=== PATIENT | male | born 1950 | race Two or more races ===

== ENCOUNTER 2018-03-06 15:07 | Emergency (ER) | payer MEDICARE, BC ==
[~2018-03-06] VITALS: Ht 175.3 cm; Wt 81.6 kg
[~2018-03-06 15:07] MED LIST: BENADRYL25 MG ORAL; PREDNISONE20 MG ORAL; RANITIDINE HCL150 MG ORAL
[2018-03-06 15:35] VITALS: BP 125/80
[2018-03-06] MEDS ORDERED: IBUPROFEN600 MG ORAL (15:38)
[2018-03-06] MEDS ORDERED: AUGMENTIN 875-1 EAC1 ORAL (15:38)
[2018-03-06 15:40] VITALS: BP 125/80
--- NOTE | 2018-03-06 19:39 | Emergency Room Report ---
History of Present Illness General Chief Complaint: Sore Throat Source: Patient Present Illness HPI Patient presents with complaints of sore throat he reports that He was at dinner with a friend yesterday who is also sick With a sore throat Soon after that he started having scratchy feeling in his throat Denies any chest pain or shortness of breath denies any back or flank pain denies any fevers Denies any change with his voice denies any posterior neck pain Allergies: Coded Allergies: No Known Allergies (Unverified , 03/06/18) Patient History Past Medical History: see triage record Pertinent Family History: none Reviewed Nursing Documentation: PMH: Agreed; PSxH: Agreed Nursing Documentation-PMH Past Medical History: No History, Except For Hx Cardiac Problems: Yes - high triglycerides Review of Systems All Other Systems: negative except mentioned in HPI Physical Exam Vital Signs Date Time Temp Pulse Resp B/P (MAP) Pulse Ox O2 Delivery O2 Flow Rate FiO2 03/06/18 15:25 98.0 80 18 125/80 98 Room Air 98.1 Sp02 EP Interpretation: reviewed, normal General Appearance: well appearing, no apparent distress Head: normocephalic, atraumatic Eyes: bilateral eye PERRL, bilateral eye EOMI ENT: no angioedema, normal voice, pharyngeal erythema Neck: full range of motion, supple Respiratory: lungs clear Cardiovascular #1: regular rate, rhythm, no edema Gastrointestinal: non tender, soft Genitourinary: no CVA tenderness Musculoskeletal: normal inspection Neurologic: alert, oriented x3 Psychiatric: normal inspection Skin: normal color, no rash Lymphatic: no adenopathy Medical Decision Making Diagnostic Impression: Primary Impression: pharyngitis ER Course Patient shows signs of clinical and examination consistent with pharyngitis placed on oral antibiotics and will have initial conservative outpatient trial Last Vital Signs Date Time Temp Pulse Resp B/P (MAP) Pulse Ox O2 Delivery O2 Flow Rate FiO2 03/06/18 15:40 98.1 18 125/80 98 Room Air 98.1 03/06/18 15:25 80 Status: unchanged Disposition: HOME, SELF-CARE Condition: Stable Scripts Ibuprofen* (MOTRIN*) 600 Mg Tablet 600 MG ORAL Q8H PRN for For Pain, #20 TAB 0 Refills Prov: Austin Pulido DO 03/06/18 Amoxicillin/Potassium Clav 875-125* (AUGMENTIN 875-125 TABLET*) 1 Each Tablet 1 TAB ORAL TWICE A DAY, #14 TAB Prov: Austin Pulido DO 03/06/18 Referrals: NON PHYSICIAN (PCP) Patient Instructions: Pharyngitis, [id number] Additional Instructions: Patient is provided with the discharge instructions notified to follow up with primary doctor in the next 2-3 days otherwise return to the er with any worsening symptoms. Please note that this report is being documented using [employer] technology. This can lead to erroneous entry secondary to incorrect interpretation by the dictating instrument. Austin Pulido DO Mar 06, 2018 19:39
== END 2018-03-06 15:40 | disposition home or self-care (01) ==
LOC: EMR 15:40
DX: J02.9 Acute pharyngitis, unspecified (principal)
CPT/HCPCS: 99283

== ENCOUNTER 2018-08-13 12:20 | Emergency (ER) | payer MEDICARE, BC ==
[~2018-08-13] VITALS: Ht 167.6 cm; Wt 81.6 kg
[~2018-08-13 12:20] MED LIST changes: +AUGMENTIN 875-1 EAC1 ORAL; +IBUPROFEN600 MG ORAL
[2018-08-13 12:26] VITALS: BP 139/85
--- NOTE | 2018-08-13 12:30 | NUR ---
ED Nurse Note: patient came in c/o allergic reaction, hives all over his body. it started after eating his dinner last night, patient does not know specifically what caused this. a/o x4, ambulatory.
[2018-08-13] MEDS ORDERED: Dexamethasone 4mg/ml vial IM ONE (13:00)
--- NOTE | 2018-08-13 13:15 | Emergency Room Report ---
History of Present Illness General Chief Complaint: Allergic Reaction Source: Patient Present Illness HPI 68-year-old male presents to the emergency department complaining of acute onset of hives since last night. Patient reports he took some Benadryl which relieved his symptoms temporarily however they returned again after about 67 hours. Patient denies pain he denies fevers, chills, blisters, recent travel or ill contacts with similar symptoms. Patient denies history of allergies however he states he did get hives once many years ago. Pt. denies swollen tender lymph nodes. Denies new medications or body washes or creams. Denies swelling of the lips, tongue , throat or airway. Denies wheezing, or shortness of breath. Denies recent travel, recent illness or ill contacts. denies blisters, oral lesions, or sloughing of the skin Allergies: Coded Allergies: No Known Allergies (Unverified , 03/06/18) Patient History Past Medical History: see triage record Past Surgical History: none Pertinent Family History: none Immunizations: UTD Reviewed Nursing Documentation: PMH: Agreed; PSxH: Agreed Nursing Documentation-PMH Past Medical History: No History, Except For Hx Cardiac Problems: Yes - high triglycerides Review of Systems All Other Systems: negative except mentioned in HPI Physical Exam Vital Signs Date Time Temp Pulse Resp B/P (MAP) Pulse Ox O2 Delivery O2 Flow Rate FiO2 08/13/18 12:26 97.3 77 20 139/85 98 Room Air Sp02 EP Interpretation: reviewed, normal General Appearance: no apparent distress, alert, GCS 15, non-toxic Head: normocephalic, atraumatic Eyes: bilateral eye normal inspection, bilateral eye PERRL ENT: hearing grossly normal, normal pharynx, no angioedema, normal voice, other - no stridor Neck: full range of motion Respiratory: chest non-tender, lungs clear, normal breath sounds, no respiratory distress, no accessory muscle use, no wheezing, speaking full sentences Cardiovascular #1: regular rate, rhythm, normal capillary refill Gastrointestinal: normal bowel sounds, non tender, soft, other - Urticaria on the abdomen Rectal: deferred Genitourinary: normal inspection Musculoskeletal: back normal, gait/station normal, normal range of motion, non- tender Neurologic: alert, oriented x3, responsive, motor strength/tone normal, sensory intact, speech normal, grossly normal Psychiatric: judgement/insight normal Skin: normal color, warm/dry, well hydrated, rash - urticarial plaques on the abdomen and upper right arm, no blisters, vesicles, crusting, pus, sloughing of the skin. Medical Decision Making PA Attestation Dr. Brunson is my supervising Physician whom patient management has been discussed with. Diagnostic Impression: Primary Impression: Allergic reaction Qualified Codes: T78.40XA - Allergy, unspecified, initial encounter ER Course 68-year-old male presents to the emergency department complaining of acute onset of hives since last night. Patient reports he took some Benadryl which relieved his symptoms temporarily however they returned again after about 67 hours. Patient denies pain he denies fevers, chills, blisters, recent travel or ill contacts with similar symptoms. Patient denies history of allergies however he states he did get hives once many years ago. Pt. denies swollen tender lymph nodes. Denies new medications or body washes or creams. Denies swelling of the lips, tongue , throat or airway. Denies wheezing, or shortness of breath. Denies recent travel, recent illness or ill contacts. denies blisters, oral lesions, or sloughing of the skin Ddx considered but are not limited to cellulitis, allergic reaction, angio edema , abscess Vital signs: are WNL, pt. is afebrile H&PE are most consistent with allergic reaction presenting with urticarial plaques -mild-moderate- No evidence of acute or impending airway compromise, no evidence of anaphylaxis. ORDERS: none required at this time, the diagnosis is clinical ED INTERVENTIONS: -IM Decadron 8mg -I do not identify an emergent condition at this time. With current presentation , pt. is stable for close outpatient follow up and conservative treatment. D/ w pt. to return promptly to ED with worsening or new symptoms.- Pt. verbalizes' understanding and agreement with proposed treatment plan. DISCHARGE: At this time pt. is stable for d/c to home. Will provide printed patient care instructions, and any necessary prescriptions. Care plan and follow up instructions have been discussed with the patient prior to discharge. Last Vital Signs Date Time Temp Pulse Resp B/P (MAP) Pulse Ox O2 Delivery O2 Flow Rate FiO2 08/13/18 12:26 97.3 77 20 139/85 98 Room Air Disposition: HOME, SELF-CARE Condition: Stable Scripts Diphenhydramine Hcl (BENADRYL ALLERGY) 25 Mg Tablet 25 MG PO Q6HR, #30 TAB Prov: Anjelica Coffman 08/13/18 Patient Instructions: Allergies Additional Instructions: Take medications as directed. Follow up with a Primary Care Provider in 3-5 days, even if your symptoms have resolved. --Please review list of primary care clinics, if you do not already have a primary care provider Return sooner to ED if new symptoms occur, or current symptoms become worse. Do not drink alcohol, drive, or operate heavy machinery while taking Benadryl as this may cause drowsiness. - Please note that this Emergency Department Report was dictated using [employer] technology software, occasionally this can lead to erroneous entry secondary to interpretation by the dictation equipment. Anjelica Coffman Aug 13, 2018 13:14
[2018-08-13] MEDS ORDERED: BENADRYL ALLERG25 M1 PO (13:16)
[2018-08-13 13:25] VITALS: BP 139/85
--- NOTE | 2018-08-13 13:25 | NUR ---
ED Nurse Note: Patient is cleared by DR. Boy SEAY, discharge information/paper/ prescription given, patient verbalized understanding, patient signed discharge paper. ID band removed. Patient ambulated out of ED steady gait.
== END 2018-08-13 13:25 | disposition home or self-care (01) ==
LOC: EMR 12:30
DX: T78.40XA Allergy, unspecified, initial encounter (principal); X58.XXXA Exposure to other specified factors, initial encounter
CPT/HCPCS: 96372; 99283; J1100